=== PATIENT | male | born 1995 | race Caucasian/White ===

== ENCOUNTER 2023-03-11 11:02 | Outpatient (CLI) | payer OTHER, SELFPAY ==
--- NOTE | 2023-03-11 11:15 | CRLHL7_ITS ---
For Patients: As a result of the Century Cures Act, medical imaging exams and procedure reports are released immediately into your electronic medical record. You may view this report before your referring provider. If you have questions, please contact your health care provider. INDICATION: Pain in the left arm COMPARISON: None. TECHNIQUE: Left upper extremity and neck venous ultrasound performed as well as ultrasound of right internal jugular vein including wiggins scale/2D, color Doppler, and spectral Doppler imaging including spectral waveform analysis. FINDINGS: Hypoechoic clot is present within 1 of the basilic veins without compressibility. Additional clot within the left basilic vein. Normal left internal jugular vein, brachiocephalic vein and subclavian vein. Normal left axillary vein and cephalic vein. IMPRESSION: Positive DVT within 1 of the left brachial veins and superficial clot within the basilic vein. Preliminary report provided to the ordering provider by the slip mixer. Dictated by Louis Izaguirre MD @ 03/11/2023 12:17:54 PM (Electronically Signed)
== END 2023-03-11 11:03 | disposition home or self-care (01) ==
LOC: US 11:02
PROVIDERS: PCP Nurse Practitioner Family; Visit Provider Nurse Practitioner Family
DX: M79.602 Pain in left arm (principal); I82.622 Acute embolism and thrombosis of deep veins of left upper extremity
CPT/HCPCS: 93971